=== PATIENT | female | born 1980 | race Caucasian/White ===

== ENCOUNTER 2017-09-26 19:00 | Emergency (ER) | payer OTHER ==
[~2017-09-26] VITALS: Ht 154.9 cm; Wt 79.4 kg
[2017-09-26 19:18] LABS: URINE BILIRUBIN NEGATIVE (Negative); URINE BLOOD 2+ (Negative); URINE COLOR YELLOW; URINE GLUCOSE-RANDOM* NEGATIVE (Negative); URINE KETONES NEGATIVE (Negative); URINE LEUKOCYTES 2+ (Negative); URINE NITRITE NEGATIVE (Negative); URINE PROTEIN (DIPSTICK) TRACE (Negative); URINE SPECIFIC GRAVITY >= 1.030 (1.005-1.035); URINE UROBILINOGEN 0.2 E.U./dl (0.2-1.0)
[2017-09-26 19:19] LABS: URINE CLARITY HAZY
[2017-09-26] MEDS ORDERED: IBUPROFEN 200200 M1 PO (19:23)
[2017-09-26 19:24] LABS: SQUAMOUS 0-3 Few /LPF (0-3); URINE WBC >25 Many /HPF (0-5)
[2017-09-26 19:26] LABS: CASTS None Seen /LPF (None Seen); CRYSTALS None Seen /LPF (None Seen)
[2017-09-26] MEDS ORDERED: FLAGYL500 MG PO (20:50)
[2017-09-26] MEDS ORDERED: KEFLEX500 M1 PO (20:50)
[2017-09-26 21:00] VITALS: BP 134/76
[2017-09-28 15:06] LABS: NEISSERIA GONORRHEA-PCR Negative (Negative)
== END 2017-09-26 21:02 | disposition home or self-care (01) ==
LOC: ER 19:00
PROVIDERS: Physician Assistant
DX: A59.01 Trichomonal vulvovaginitis (principal); N39.0 Urinary tract infection, site not specified; F41.9 Anxiety disorder, unspecified; F32.9 Major depressive disorder, single episode, unspecified; Z90.49 Acquired absence of other specified parts of digestive tract; Z90.710 Acquired absence of both cervix and uterus; M32.9 Systemic lupus erythematosus, unspecified; Z88.0 Allergy status to penicillin; Z88.1 Allergy status to other antibiotic agents